=== PATIENT | female | born 1985 | race African-American/Black ===

== ENCOUNTER 2022-07-04 13:25 | Outpatient (CLI) | payer OTHER, SELFPAY ==
[2022-07-04 14:01] LABS: Anion Gap 6 mmol/L (8-16); Blood Urea Nitrogen 11 mg/dL (7-17); Calcium 8.4 mg/dL (8.4-10.2); Carbon Dioxide 28 mmol/L (22-30); Chloride 105 mmol/L (98-107); Estimated Glomerular Filt Rate > 60; Glucose 91 mg/dL (65-110); Potassium 3.6 mmol/L (3.4-5.0); Sodium 139 mmol/L (137-145)
== END 2022-07-04 13:26 | disposition home or self-care (01) ==
PROVIDERS: Anesthesiology; Visit Provider Obstetrics & Gynecology Gynecology
DX: Z01.818 Encounter for other preprocedural examination (principal); Z79.899 Other long term (current) drug therapy
CPT/HCPCS: 36415; 80048

== ENCOUNTER 2022-07-08 00:19 | Day surgery (SDC) | payer OTHER, SELFPAY ==
[2022-06-28 15:50] VITALS: BMI 36.5
--- NOTE | 2022-06-28 15:55 | SUR.PREOP ---
Report to the Outpatient Waiting Room, entrance under the green pavilion located off [facility], at time 0600 on date 07/08/22. Planned Procedure Time: 0730. Time changes happen often and if your time is changed the preop area will call you the afternoon before. - You and your visitor will be asked to self-screen and do not enter if you have any COVID symptoms. - Only one visitor is requested with a max of two and NO children visitors are allowed at this time. - The patient visitor may be requested to leave or wait in car when not with patient due to distancing restrictions. - A mask is optional within the hospital. Patients may have clear liquids (water, carbonated beverages, clear teas, apple juice) until 3 hours prior to surgery with a maximum of 20 ounces. - No food from midnight until time of surgery - Infants may have breast milk until 4 hours before surgery, infant formula 6 hours prior to surgery. - Children will be allowed to drink immediately following surgery. If applicable, please bring a bottle or sippy cup to assist with drinking. Juice, water, soda, and popsicles are readily available. For infants on formula, please bring formula the day of surgery. Pacifiers are allowed. Take the following medications with a SIP of water the morning of surgery: n/a Medications to discontinue per physician hold lisinopril/HCTZ morning of surgery Date to take last dose Please no make-up, nail romansh, hairspray, perfume, deodorant, or body powder the day of surgery. No jewelry (including any body piercings) or valuables the day of surgery, leave them at home. Please take a shower or bath the night before, or the morning of, surgery with an antibacterial soap. Wear comfortable, loose fitting clothing. Children are encouraged to wear pajamas. - Jewelry must be removed prior to entering the operating room. Rings and piercings that are not removed may be cut off. - The hospital will not accept responsibility for valuables. - Please leave all valuables, including medications, at home the day of surgery. If you are going home after surgery, a licensed airport driver must drive you home. - NO public transportation without another adult if you receive anesthesia. - We recommend that an adult stay with you for 24 hours following discharge. - We also recommend that you do not drive, make important decision, drink alcoholic beverages, or take any drugs that were not prescribed by your health care provider for at least 24 hours after your discharge time. For Pediatric surgeries, we recommend two adults accompany the child home. Follow any additional instructions given to you from your surgeon. If you or anyone in your household have experienced Covid symptoms in the past week, please notify your surgeon or the nurse liaison at the phone number below for possible testing. Telephone instructions given to _patient_and asked if any additional questions and then verbalized understanding. Patient advised to call surgeon office or pre surgery nurse liaison [phone] if any additional questions.
[2022-07-08] MEDS: ACETAMINOPHEN 500 MG TABLET 1000 MG PO (06:27)
[2022-07-08] MEDS: LACTATED RINGERS 1,000 ML 30 ML IV CONT (06:30)
[2022-07-08 06:58] VITALS: BP 151/102; PULSE 97; RESP 18; TEMP 36.1; O2SAT 100
--- NOTE | 2022-07-08 07:02 | WPDANESEPPF ---
Anes - Initial Pre Proc Eval Procedure: Operation Date: 07/08/22 07:30 Proposed Procedures p Hysteroscopy with Dilation and Curettage - Dior Reyna MD Date/Time: 07/08/22 07:02 Surgeon: Dior Reyna MD Pre Op Diagnosis: Menorrhagia, Fibroids Patient Data Age: 36 Gender: F Height: 1.73 m Weight: 115.3 kg Last Vital Signs Temp 36.1 C L 07/08/22 06:58 Pulse 97 07/08/22 06:58 Resp 18 07/08/22 06:58 BP 151/102 H 07/08/22 06:58 Pulse Ox 100 07/08/22 06:58 O2 Del Method Room Air 07/08/22 06:58 Allergies Allergy/AdvReac Type Severity Reaction Status Date / Time No Known Allergies Allergy Verified 07/08/22 06:56 Home Medications Medication Instructions Recorded Confirmed Type Vitamin D3 Complete 50,000 units PO WEEKLY 06/28/22 07/08/22 History lisinopril 10 1 tablet PO DAILY 06/28/22 07/08/22 History mg-hydrochlorothiazide 12.5 mg tablet mirtazapine 30 mg tablet 30 mg PO DAILY 06/28/22 07/08/22 History Patient hx anesthesia problems: none Family hx anesthesia problems: none Results Review: All pre-operative results and documents have been reviewed as part of the pre-operative evaluation. [facility] Past Medical History Medical History (Updated 07/08/22 @ 07:03 by Isai Fonseca MD) Abnormal uterine bleeding HTN (hypertension) Obesity Social History Social History Smoking status: Never smoker Drinks per week: 1 Living arrangements: with family Spiritual care concerns: No Anes - Eval Final PreProcedure Day of Procedure 07/08/22 07:02 Patient weight: obese Heart: regular rate and rhythm Lungs: clear to auscultation and normal air movement Airway: Mallampati scale class II Neurological: alert and oriented Last oral intake: >/= 8 hours ASA classification: III Emergent: no Anesthetic plan: proceed Anesthesia type and monitoring: general GIVS and LMA Results Review: All pre-operative results and documents have been reviewed as part of the pre-operative evaluation. Informed Consent: The patient's anesthetic plan and its attendant risks and benefits were discussed with the patient/family/POA. Questions were solicited and answers provided to the satisfaction of the patient/family/POA.
--- NOTE | 2022-07-08 07:15 | WPDHPUPDATE1 ---
History and Physical Update Update Date/Time: 07/08/22 07:15 History and Physical has been reviewed, including an updated exam of the patient. There are NO changes in the patient's condition. Risks, benefits, and alternatives have been discussed and questions answered. Patient agrees to proceed with procedure.
--- NOTE | 2022-07-08 07:16 | PM.HPGS ---
History of Present Illness History of Present Illness Consent: Risks, benefits, and alternatives have been discussed and questions answered. Patient agrees to proceed with procedure. Chief complaint: Menorrhagia, Fibroids Narrative: Katarzyna Cheng is a 36 year old female With heavy cycles and dysmenorrhea. Pelvic ultrasound shows possible uterine fibroids. It was recommended to proceed with D&C hysteroscopy with possible resection of fibroids. Risks of infection, bleeding, perforation, and fluid imbalance were reviewed. Possible pathology is also discussed. Patient voices understanding and agrees to proceed. Review of Systems Review of Systems: not repeated day of surgery; patient states no changes in status COUNTS INCLUDE 234 BEDS AT THE [facility] Past Medical History Medical History (Updated 07/08/22 @ 07:03 by Isai Fonseca MD) Abnormal uterine bleeding HTN (hypertension) Obesity Surgical History Surgical History (Updated 07/08/22 @ 07:18 by Dior Reyna MD) History of bilateral breast reduction surgery History of D&C 2006 for bleeding History of elective 2014 History of toe surgery Social History Social History Smoking status: Never smoker Drinks per week: 1 Living arrangements: with family Spiritual care concerns: No Meds Home Medications and Allergies Home Medications Medication Instructions Recorded Confirmed Type Vitamin D3 Complete 50,000 units PO WEEKLY 06/28/22 07/08/22 History lisinopril 10 1 tablet PO DAILY 06/28/22 07/08/22 History mg-hydrochlorothiazide 12.5 mg tablet mirtazapine 30 mg tablet 30 mg PO DAILY 06/28/22 07/08/22 History Allergies Allergy/AdvReac Type Severity Reaction Status Date / Time No Known Allergies Allergy Verified 07/08/22 06:56 Vital Signs Vital Signs - 24 hr 07/08/22 06:58 Temperature 97.0 F L Pulse Rate 97 Respiratory Rate 18 Blood Pressure 151/102 H Pulse Oximetry 100 Oxygen Delivery Room Air Exam Narrative: BMI 38 Const: General: healthy appearing and alert Orientation/consciousness: patient oriented x3 Resp: Effort & Inspection: normal respiratory effort GI: GI Palp: Yes Soft to palpation, No Tenderness to palpation present (GI) and No Palpable mass present : External Female Exam: normal external appearance Speculum Exam - Vagina: normal appearance of the vagina and normal vaginal discharge Speculum Exam - Cervix: normal appearance of the cervix Bimanual exam- vagina & uterus: uterine size normal and consistency normal Bimanual Exam- Adnexa, other: normal adnexae and No adnexal tenderness Neuro: General: patient oriented x3 Assessment and Plan Assessment and plan (1) Abnormal uterine bleeding: Code(s): N93.9 - Abnormal uterine and vaginal bleeding, unspecified Status: Acute Assessment and Plan: plan to proceed with D&C hysteroscopy
[2022-07-08] MEDS: LIDOCAINE HCL 1% PF 30 ML VIAL INFILTRATE (07:43)
[2022-07-08 08:01] VITALS: BP 160/106; PULSE 90; RESP 18; O2SAT 99
--- NOTE | 2022-07-08 08:05 | W.PM.PROC2 ---
Procedure Note - Detailed Date of Procedure 07/08/22 Pre-op Diagnosis Menorrhagia, Fibroids Post-op Diagnosis Same Procedure Performed D&C hysteroscopy with resection of thickened lining Surgeon Dior Reyna MD Anesthesia MAC and Local Findings the uterus sounds to 10cm and has a very thickened posterior lining; no visible fibroids Description of Procedure The patient was taken to the operating room and placed under anesthesia in dorsal lithotomy position. She was prepped and draped in the usual sterile fashion. [place] speculum was placed in the vagina and the cervix grasped on the anterior lip with a tenaculum. The cervix is injected in each quadrant with 1% lidocaine. The uterus is sounded to 10cm. The cervix is dilated to a 6 Hegar. The Symphion hysteroscope is placed with the above-stated findings. The resection device is placed through the port and the posterior wall is resected under direct visualization. The hysteroscope was removed and the medium sharp curette used to curette the endometrium until a good uterine cry was noted in all areas. All instruments are removed. Sponge, needle, and instrument counts are correct per the OR staff. The patient was awakened from anesthesia and taken to recovery in stable condition. Estimated Blood Loss 5 Drains No Packing No Pathology Yes ( Endometrial shavings and curettings) Complications No immediate complications Condition Stable Disposition PACU
[2022-07-08] MEDS: fentaNYL CITRATE INJ (*CRX) 100 MCG/2 ML VIAL 25 MCG IV PUSH ×4 (08:09→08:23)
[2022-07-08] MEDS: oxyCODONE HCL (*CRX) 5 MG TAB IR PO (08:29)
[2022-07-08 08:30] VITALS: BP 135/88; PULSE 86; RESP 16; O2SAT 100
[2022-07-08 09:00] VITALS: BP 135/92; PULSE 74; RESP 16; O2SAT 100
== END 2022-07-08 09:18 | disposition home or self-care (01) ==
PROVIDERS: Visit Provider Obstetrics & Gynecology Gynecology
PROC: 0U5B8ZZ Destruction of Endometrium, Via Natural or Artificial Opening Endoscopic (ICD-10-PCS; CPT 58563; principal; 2022-07-08 07:30)
DX: N92.0 Excessive and frequent menstruation with regular cycle (principal); N94.6 Dysmenorrhea, unspecified; I10 Essential (primary) hypertension; E66.9 Obesity, unspecified; Z68.38 Body mass index [BMI] 38.0-38.9, adult
CPT/HCPCS: 58558; 36415; 80048; 88305; A9270; J1885; J2250; J2704; J3010; J7030; J7120

== ENCOUNTER 2023-11-24 03:38 | Day surgery (SDC) | payer OTHER, MEDICAID, SELFPAY ==
[2023-11-21 15:09] VITALS: BMI 35.2
--- NOTE | 2023-11-21 15:23 | PC.NURSE ---
Report to the Outpatient Waiting Room, entrance under the green pavilion located off [facility], at time __11:30AM on date __11/24/23 . Planned Procedure Time: __1:30PM . Time changes happen often and if your time is changed the preop area will call you the afternoon before. - You and your visitor will be asked to self-screen and do not enter if you have any COVID symptoms. - A mask is optional within the hospital at this time. Patients may have clear liquids (water, carbonated beverages, clear teas, apple juice) until 3 hours prior to surgery with a maximum of 20 ounces. - No food from midnight until time of surgery - Infants may have breast milk until 4 hours before surgery, infant formula 6 hours prior to surgery. - Children will be allowed to drink immediately following surgery. If applicable, please bring a bottle or sippy cup to assist with drinking. Juice, water, soda, and popsicles are readily available. For infants on formula, please bring formula the day of surgery. Pacifiers are allowed. Take the following medications with a SIP of water the morning of surgery: NONE DO NOT STOP ANY OF YOUR OTHER PRESCRIPTION MEDICATIONS PRIOR TO SURGERY ?EXCEPT THE FOLLOWING Medications to discontinue per physician NONE Date to take last dose Please no make-up, nail fijian, hairspray, perfume, deodorant, or body powder the day of surgery. No jewelry (including any body piercings) or valuables the day of surgery, leave them at home. Please take a shower or bath the night before, or the morning of, surgery with an antibacterial soap. Wear comfortable, loose fitting clothing. Children are encouraged to wear pajamas. - Jewelry must be removed prior to entering the operating room. Rings and piercings that are not removed may be cut off. - The hospital will not accept responsibility for valuables. - Please leave all valuables, including medications, at home the day of surgery. If you are going home after surgery, a licensed sales driver must drive you home. - NO public transportation without another adult if you receive anesthesia. - We recommend that an adult stay with you for 24 hours following discharge. - We also recommend that you do not drive, make important decision, drink alcoholic beverages, or take any drugs that were not prescribed by your health care provider for at least 24 hours after your discharge time. For Pediatric surgeries, we recommend two adults accompany the child home. Follow any additional instructions given to you from your surgeon. If you or anyone in your household have experienced Covid symptoms in the past week, please notify your surgeon or the nurse liaison at the phone number below for possible testing. Telephone instructions given to ____PATIENT and asked if any additional questions and then verbalized understanding. Patient advised to call surgeon office or pre surgery nurse liaison [phone] if any additional questions.
--- NOTE | 2023-11-24 07:35 | WPDHPUPDATE1 ---
History and Physical Update Update Date/Time: 11/24/23 07:35 History and Physical has been reviewed, including an updated exam of the patient. There are NO changes in the patient's condition. Risks, benefits, and alternatives have been discussed and questions answered. Patient agrees to proceed with procedure.
--- NOTE | 2023-11-24 07:35 | PM.HPGS ---
History of Present Illness History of Present Illness Consent: Risks, benefits, and alternatives have been discussed and questions answered. Patient agrees to proceed with procedure. Chief complaint: missed ab Narrative: Katarzyna Cheng is a 38 year old female who is 9 weeks by dates and only 6 weeks by ultrasound. Prior ultrasound revealed positive heart tones and secondary ultrasound 2 weeks later revealed no growth and no heart tones. Patient with initial vaginal spotting prior to 1st ultrasound but none since. Options were reviewed with the patient and she has elected to proceed with D& C. Risks of infection, bleeding and perforation are reviewed. Patient voices understanding and agrees to proceed. Review of Systems Review of Systems: not repeated day of surgery; patient states no changes in status PMFSH Past Medical History Medical History (Updated 11/24/23 @ 07:38 by Dior Reyna MD) HTN (hypertension) Obesity Surgical History Surgical History (Updated 07/08/22 @ 07:18 by Dior Reyna MD) History of bilateral breast reduction surgery History of D&C 2006 for bleeding History of elective 2014 History of toe surgery Social History Social History Smoking packs per day: 0.2 Smoking cigarettes per day: 4.0 Years smoked: 7 Smoking pack-years: 1.40 Smoking status: Never smoker Tobacco type: cigarettes Smoking end date: 01/25/18 Alcohol intake: current Drinks per week: 3 Living arrangements: with family Additional living arrangements comments: S.O. Spiritual care concerns: No Meds Home Medications and Allergies Home Medications Medication Instructions Recorded Confirmed Type mirtazapine 30 mg tablet 30 mg PO HS 06/28/22 11/21/23 History Allergies Allergy/AdvReac Type Severity Reaction Status Date / Time No Known Allergies Allergy Verified 11/21/23 15:07 Exam Const: General: healthy appearing and alert Orientation/consciousness: patient oriented x3 Resp: Effort & Inspection: normal respiratory effort : External Female Exam: normal external appearance Speculum Exam - Vagina: normal appearance of the vagina and normal vaginal discharge Speculum Exam - Cervix: normal appearance of the cervix Bimanual exam- vagina & uterus: uterine size normal and consistency normal Bimanual Exam- Adnexa, other: normal adnexae and No adnexal tenderness Neuro: General: patient oriented x3 Assessment and Plan Assessment and plan (1) Missed : Code(s): O02.1 - Missed Status: Acute Assessment and Plan: plan to proceed with suction D&C
[2023-11-24 11:30] VITALS: BP 145/92; PULSE 80; RESP 14; TEMP 36.9; O2SAT 99
[2023-11-24] MEDS: LACTATED RINGERS 1,000 ML 30 ML IV CONT (12:00)
[2023-11-24] MEDS: ACETAMINOPHEN 500 MG TABLET 1000 MG PO (12:00)
--- NOTE | 2023-11-24 12:19 | P.PNAN_ITS ---
Anes - Initial Pre Proc Eval Procedure: Operation Date: 11/24/23 13:30 Proposed Procedures p Suction Dilation and Curettage - Dior Reyna MD Date/Time: 11/24/23 12:19 Surgeon: Dior Reyna MD Pre Op Diagnosis: missed ab Patient Data Age: 38 Gender: F Height: 1.73 m Weight: 106.3 kg Last Vital Signs Temp 36.9 C 11/24/23 11:30 Pulse 80 11/24/23 11:30 Resp 14 11/24/23 11:30 BP 145/92 H 11/24/23 11:30 Pulse Ox 99 11/24/23 11:30 O2 Del Method Room Air 11/24/23 11:30 Allergies Allergy/AdvReac Type Severity Reaction Status Date / Time No Known Allergies Allergy Verified 11/24/23 12:08 Home Medications Medication Instructions Recorded Confirmed Type mirtazapine 30 mg tablet 30 mg PO HS 06/28/22 11/24/23 History Laboratory Tests 11/24/23 11:51 Blood Type Pending Antibody Screen Pending Doses of RhIg Required Pending Patient hx anesthesia problems: none Family hx anesthesia problems: none Results Review: All pre-operative results and documents have been reviewed as part of the pre- operative evaluation. [facility] Past Medical History Medical History (Updated 11/24/23 @ 07:38 by Dior Reyna MD) HTN (hypertension) Obesity Surgical History Surgical History History of bilateral breast reduction surgery History of D&C 2006 for bleeding History of elective 2014 History of toe surgery Social History Social History Smoking packs per day: 0.2 Smoking cigarettes per day: 4.0 Years smoked: 7 Smoking pack-years: 1.40 Smoking status: Never smoker Tobacco type: cigarettes Smoking end date: 01/25/18 Alcohol intake: current Drinks per week: 3 Living arrangements: with family Additional living arrangements comments: S.O. Spiritual care concerns: No Anes - Eval Final PreProcedure Day of Procedure 11/24/23 12:19 Patient weight: obese Heart: regular rate and rhythm Lungs: clear to auscultation Airway: Mallampati scale class II Neurological: alert and oriented Last oral intake: >/= 8 hours ASA classification: II Emergent: no Anesthetic plan: proceed Anesthesia type and monitoring: general GIVS and standard monitoring Results Review: All pre-operative results and documents have been reviewed as part of the pre- operative evaluation. Informed Consent: The patient's anesthetic plan and its attendant risks and benefits were discussed with the patient/family/POA. Questions were solicited and answers provided to the satisfaction of the patient/family/POA.
[2023-11-24] MEDS: KETOROLAC 30 MG/ML VIAL (*BKC) IV PUSH (13:12)
[2023-11-24] MEDS: LIDOCAINE HCL 1% LOCAL INJ 20 ML VIAL INFILTRATE (13:14)
--- NOTE | 2023-11-24 13:20 | P.OP_ITS ---
Procedure Note - Detailed Date of Procedure 11/24/23 Pre-op Diagnosis missed ab Post-op Diagnosis Same Procedure Performed suction D&C Surgeon Dior Reyna MD Anesthesia MAC and Local Findings uterus sounds to 8cm moderate products of conception Description of Procedure The patient is taken the under anesthesia in the dorsal lithotomy position. She was prepped and draped in the usual sterile fashion. [place] speculum was placed in the vagina and the cervix grasped on the anterior lip with a tenaculum. Each quadrant was injected with 1% lidocaine. The uterus is sounded to 8cm. The cervix was serially dilated to an 8 Hegar. The curved suction curette is used to evacuate the uterus until no further products were noted in the tubing. The sharp curette is used to curette the endometrium until a good uterine cry was noted in all areas. One additional pass was taken with the suction curette with no additional material noted. All instruments are removed. Sponge, needle, and instrument counts are correct per the OR staff. Patient was awakened from anesthesia and taken to recovery in stable condition. Estimated Blood Loss 100 ( Total products of conception) Drains No Packing No Pathology Yes ( products of conception) Complications No immediate complications Condition Stable Disposition PACU
[2023-11-24 13:21] VITALS: BP 135/73; PULSE 92; RESP 16; O2SAT 100
[2023-11-24] MEDS: fentaNYL CITRATE INJ (*CRX) 100 MCG/2 ML VIAL 25 MCG IV PUSH ×6 (13:35→14:03)
[2023-11-24 13:50] VITALS: BP 135/71; PULSE 67; O2SAT 100
[2023-11-24 14:20] VITALS: BP 145/79; PULSE 70
[2023-11-24 14:50] VITALS: BP 129/66; PULSE 71
== END 2023-11-24 14:50 | disposition home or self-care (01) ==
PROVIDERS: PCP Family Medicine; Visit Provider Obstetrics & Gynecology Gynecology
PROC: (CPT 59820; principal; 2023-11-24 13:30)
DX: O02.1 Missed abortion (principal); I10 Essential (primary) hypertension; Z98.890 Other specified postprocedural states; Z87.891 Personal history of nicotine dependence
CPT/HCPCS: 59820; 36415; 85461; 86850; 86900; 86901; 88305; A9270; J1885; J2250; J2405; J2704; J3010; J7120

== ENCOUNTER 2023-11-27 07:56 | Outpatient (CLI) | payer OTHER, MEDICAID, SELFPAY ==
--- NOTE | ~2023-11-27 | US_ITS ---
EXAMINATION: US pelvic complete w TV DATE: 11/27/2023 08:53 INDICATION: D&C last week. Patient still bleeding. Comparison:No prior studies for comparison. TECHNIQUE: Multiple transabdominal and endovaginal sonographic images of the pelvis performed. FINDINGS: The uterus measures 12.2 x 7.2 x 7.5 cm.. Endometrium is heterogeneous. There are 2 fibroid s noted measuring up to 4.9 cm inferiorly and 4.6 cm superiorly. The endometrial complex measures 15 mm. The right ovary is not visualized. Left ovary is unremarkable measuring 4.1 x 3.3 x 2.6 cm. There is no free fluid in the pelvis. There are no abnormal masses seen on either side. IMPRESSION: 1. Thickened heterogeneous endometrium measuring 15 mm. 2: Enlarged fibroid uterus. Reviewed, dictated and finalized at location B.
[2023-11-27 09:21] LABS: Hematocrit 37.5 % (37.0-47.0); Hemoglobin 11.2 g/dL (12.0-15.0); Mean Corpuscular HGB Conc 29.9 g/dl (32-36); Mean Corpuscular Hemoglobin 22.7 pg (26-34); Mean Corpuscular Volume 76.1 fl (80-100); Mean Platelet Volume 12.6 fl (7.4-10.4); Platelet Count Result 273 k/mm3 (150-375); Red Blood Count 4.93 M/mm3 (4.2-5.4); Red Cell Distribution Width 20.7 % (11.5-14.5)
== END 2023-11-27 07:57 | disposition home or self-care (01) ==
PROVIDERS: PCP Family Medicine; Visit Provider Obstetrics & Gynecology Gynecology
DX: N92.0 Excessive and frequent menstruation with regular cycle (principal); R10.2 Pelvic and perineal pain; D25.9 Leiomyoma of uterus, unspecified
CPT/HCPCS: 36415; 76830; 76856; 85027